=== PATIENT | female | born 1970 | race Caucasian/White ===

== ENCOUNTER 2017-09-03 06:29 | Day surgery (SDC) | payer BC ==
[~2017-09-03 06:29] MED LIST: Lactated Ringers 1,000 ML IV SCH
--- NOTE | 2017-09-03 07:06 | PCM.PREANE ---
Preanesthetic Assessment - Anesthesia/Transfusion/Family Hx Anesthesia History: Prior Anesthesia Without Reaction Family History of Anesthesia Reaction: No Transfusion History: No Prior Transfusion(s) Intubation History: Unknown - Review of Systems General: No Symptoms Pulmonary: No Symptoms Cardiovascular: No Symptoms Gastrointestinal: No Symptoms Neurological: No Symptoms Other: Reports: None - Physical Assessment Height: 1.69 m Weight: 70.76 kg ASA Class: 1 Mental Status: Alert & Oriented x3 Airway Class: Mallampati = 2 Dentition: Reports: Normal Dentition Thyro-Mental Finger Breadths: 3 Mouth Opening Finger Breadths: 3 ROM/Head Extension: Full Lungs: Clear to Auscultation, Normal Respiratory Effort Cardiovascular: Regular Rate, Regular Rhythm - Allergies Allergies/Adverse Reactions: Allergies Allergy/AdvReac Type Severity Reaction Status Date / Time No Known Allergies Allergy Verified 08/29/17 08:39 - Blood Blood Available: No - Anesthesia Plan Pre-Op Medication Ordered: None - Acknowledgements Anesthesia Type Planned: General Anesthesia Pt an Appropriate Candidate for the Planned Anesthesia: Yes Alternatives and Risks of Anesthesia Discussed w Pt/Guardian: Yes Pt/Guardian Understands and Agrees with Anesthesia Plan: Yes PreAnesthesia Questionnaire HEENT History: Reports: None Genitourinary History: Reports: None DENTAL ASSISTANT MEDICAL ASSISTANT History: Reports: Musculoskeletal History: Reports: None - Past Surgical History Head Surgeries/Procedures: Reports: None HEENT Surgical History: Reports: LASIK Female Surgical History: Reports: Section Musculoskeletal Surgical History: Reports: Carpal Tunnel (bilateral) - SUBSTANCE USE Smoking Status *Q: Never Smoker Recreational Drug Use History: No - HOME MEDS Home Medications: Home Meds Levonorgestrel [Mirena] 1 device VAG ASDIRECTED 08/29/17 [History] Multivitamin [Multivitamins] 1 tab PO DAILY 08/29/17 [History] - CURRENT (IN HOUSE) MEDS Current Meds: Current Medications Lactated Ringer's (Ringers, Lactated) 1,000 mls @ 125 mls/hr IV ASDIRECTED [facility] Last Admin: 09/03/17 06:58 Dose: 125 mls/hr
[2017-09-03] MEDS ORDERED: Rocuronium 10 MG/ML 10 ML Syringe ONE (07:21)
[2017-09-03] MEDS ORDERED: Neostigmine Methylsulfate 1 MG/ML 5 ML Syringe ONE (07:21)
[2017-09-03] MEDS ORDERED: Ondansetron 4 MG/2 ML SDV ONE (07:21)
[2017-09-03] MEDS ORDERED: Lidocaine 2% 5 ML SDV ONE (07:21)
[2017-09-03] MEDS ORDERED: Bupivacaine 0.25% 10 ML SDV ONE (07:21)
[2017-09-03] MEDS ORDERED: Propofol 200 MG/20 ML SDV ONE (07:22)
[2017-09-03] MEDS ORDERED: fentaNYL 100 MCG/2 ML SDV ONE ×2 (07:22→08:55)
[2017-09-03] MEDS ORDERED: Midazolam 1 MG/ML 2 ML SDV ONE (07:22)
[2017-09-03] MEDS ORDERED: Sodium Chloride 0.9% 10 ML Syringe FLUSH PRN (07:50)
[2017-09-03] MEDS ORDERED: Sodium Chloride 0.9% 2.5 ML Syringe FLUSH PRN (07:50)
[2017-09-03] MEDS ORDERED: fentaNYL 100 MCG/2 ML SDV IVPUSH PRN (07:51)
[2017-09-03] MEDS ORDERED: Phenylephrine/Normal Saline 100 MCG/ML 10 ML Syringe ONE (08:10)
[2017-09-03] MEDS ORDERED: ePHEDrine 50 MG/ML SDV ONE (08:21)
[2017-09-03] MEDS ORDERED: Dexamethasone 4 MG/ML 5 ML MDV ONE (09:16)
[2017-09-03] MEDS ORDERED: Ketorolac 30 MG/ML SDV ONE (09:22)
--- NOTE | 2017-09-03 10:12 | PCM.OPNOTE ---
- General Post-Op/Procedure Note Date of Surgery/Procedure: 09/03/17 Operative Procedure(s): Laparoscopic right salpingo-ophrectomy Findings: Normal appearing uterus, left ovarian with follicles and a corpus luteum cyst, right ovarian dermoid cyst. Pre Op Diagnosis: Right ovarian cyst Post-Op Diagnosis: Right ovarian dermoid cyst Anesthesia Technique: General ET Tube Primary Surgeon: Lara Anaya Pathology: Right ovary and tube and right ovarian aspirate Fluid Replacement, Intraop: 1,700 EBL in mLs: 20 Complications: None Condition: Good
[2017-09-03 11:39] VITALS: BP 126/72
--- NOTE | 2017-09-04 02:30 | OR ---
SURGEON: Lara Anaya MD DATE OF PROCEDURE: 09/03/2017 PREOPERATIVE DIAGNOSES: 1. Pelvic pain. 2. Right ovarian cyst. POSTOPERATIVE DIAGNOSES: 1. Pelvic pain. 2. Right ovarian dermoid cyst. PROCEDURE: Laparoscopic right salpingo-oophorectomy. ANESTHESIA: General endotracheal. ESTIMATED BLOOD LOSS: 20 mL. COMPLICATIONS: None. DISPOSITION: Stable to recovery room. FINDINGS: 8-weeks anteverted mobile uterus. Normal-appearing tubes bilaterally. Enlarged right ovary, normal appearing left ovary with follicles and a corpus luteum cyst. BRIEF HISTORY: 46-year-old patient with a symptomatic right ovarian cyst. Ultrasound findings consistent with either a fibroma or other neoplastic process. Management options discussed with patient. The patient agreed to to proceed with surgical management. Procedure discussed in detail and appropriate consent obtained. DESCRIPTION OF PROCEDURE: The patient was taken to the operating room where induction of general anesthesia was performed without difficulty. After adequate level of general anesthesia, she was placed in dorsal lithotomy position. Examination under anesthesia was performed with the aforementioned findings documented. The abdomen, perineum, and vagina were prepped and draped in the usual sterile fashion. The bladder was emptied. Appropriate time-out was held. A bivalved speculum was placed into the vagina, the Mirena IUD strings were visualized. The anterior lip of the cervix was grasped with an Allis clamp, the uterus was sounded to 9 cm and a [email or web address] uterine manipulator was placed. Instruments were removed from the vagina and the video operator's gloves were changed. Attention was then turned to the abdomen where the infraumbilical area was infiltrated with 0.25% Marcaine and a 5 mm incision was made with the scalpel. The Veress needle was then carefully introduced into the peritoneal cavity while tenting the abdominal wall and proper placement was confirmed with the water drop test and then CO2 insufflation was commenced. The opening pressure was 6 mmHg. After adequate pneumoperitoneum was achieved to a pressure of 13 mmHg, the Veress needle was removed and a 5 mm trocar was introduced into the peritoneal cavity, correct placement was confirmed with a 5 mm laparoscope. A panoramic survey of the pelvis and abdomen was performed including the upper abdominal organs. The pelvic organs were then inspected with the aforementioned findings noted. The uterus was elevated out of the pelvis and both ureters were identified deep within the pelvis. Two additional 5 mm trocars were placed bilaterally in the lower quadrants approximately 8 cm from the midline under direct laparoscopic visualization. Using electrocautery, the right ovarian cyst was incised and copious amount of creamy sebaceous looking fluid, followed by strands of hair were noted to exude through the incision. Therefore, a diagnosis of right ovarian dermoid cyst was made. Copious irrigation of the pelvis was performed. Given the fact that the patient had completed her family and is in her fourth decade of life, I decided to perform with a right salpingo-oophorectomy. Using a 5 mm LigaSure device, the right infundibulopelvic ligament was identified, cauterized twice and then ligated. Continuing along the mesosalpinx, the right fallopian tube was then cauterized and serially ligated until the cornua of the uterus was reached. The specimen was then held by my review assistant and the right 5 mm trocar was taken out. The incision was extended and a 12 mm trocar was introduced under direct visualization. An endobag device was then introduced through this port and advanced near the specimen under visualization and it was retrieved. The Endobag was then pulled out through the right port. Good hemostasis of the resected area was noted. The left corpus luteum cyst was then aspirated. The ureters were then identified once again. Copious irrigation of the pelvis was performed, making sure that all the aspirates from the dermoid cyst was suctioned out of the abdominal cavity. The lateral ports were removed under direct visualization. The pneumoperitoneum was released and the laparoscope with the umbilical port was then removed. All the skin incisions were closed with 4-0 Monocryl sutures using subcuticular stitches. The instrument and the Hulka manipulator were then removed from the patient's uterus. Once again the Mirena IUD string was identified. Instrument, needle, and sponge counts were correct at the end of the procedure. The patient tolerated the procedure well and was taken to the recovery room in a stable condition. GEMMA / LEONEL /[id number] MATTHEW
== END 2017-09-03 11:30 | disposition home or self-care (01) ==
LOC: MW.SDS 06:29
PROVIDERS: ATTEND Obstetrics & Gynecology
DX: D27.0 Benign neoplasm of right ovary (principal); Z79.899 Other long term (current) drug therapy; Z98.890 Other specified postprocedural states
CPT/HCPCS: 36415; 58661; 84703; J1100; J1885; J2250; J2405; J3010; J7120; 00840; 88173; 88307; J2704

== ENCOUNTER 2025-10-27 07:42 | Day surgery (SDC) | payer BC ==
[~2025-10-27 07:42] MED LIST changes: -Lactated Ringers 1,000 ML IV SCH; +Sodium Chloride 0.9% 10 ML Syringe FLUSH PRN; +Sodium Chloride 0.9% 2.5 ML Syringe FLUSH PRN
[2025-10-27] MEDS ORDERED: propofoL 500 MG/50 ML 50 ML ONE (08:22)
[2025-10-27] MEDS ORDERED: Midazolam 1 MG/ML 2 ML SDV ONE (08:28)
[2025-10-27] MEDS: Lactated Ringers 1,000 ML IV SCH (08:39)
[2025-10-27 11:05] VITALS: BP 109/69; PULSE 63
== END 2025-10-27 10:12 | disposition home or self-care (01) ==
LOC: MW.SDS 07:42
PROVIDERS: ATTEND Surgery
DX: Z12.11 Encounter for screening for malignant neoplasm of colon (principal); D12.3 Benign neoplasm of transverse colon
CPT/HCPCS: 45380; J2003; J2250; J2704; J7120; 00811